=== PATIENT | male | born 1945 | race Caucasian/White ===

== ENCOUNTER 2018-06-20 16:03 | Emergency (ER) | payer MEDICARE, OTHER ==
--- NOTE | 2018-06-20 16:13 | ER Report ---
History and Physical Time Seen By MD: 16:14 Hx. of Stated Complaint: WORKING IN [employer] AND STARTED TO FEEL WHEEZY AND SOB. NO CP HPI/ROS CHIEF COMPLAINT: Shortness of breath HISTORY OF PRESENT ILLNESS: 72-year-old male patient presents to emergency room with complaint shortness of breath. 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 Patient states he felt like he is very wheezy. Patient states there are fair amount of rales droppings and states he noticed several mice, but it has put out poison for them. He denies having any fevers, chills, nausea, vomiting or diarrhea. Patient denies having any chest pain. He has not taken any medication for this. Upon arrival to the emergency room patient had auction saturation of 84% on room air. Patient was placed on 2 L auction states he feels better at this time. REVIEW OF SYSTEMS: Respiratory: As noted above. Cardiovascular: No chest pain, no palpitations. Gastrointestinal: No vomiting, no abdominal pain. Musculoskeletal: No back pain. Allergies: Uncoded Allergies: ANESTHESIA (Adverse Reaction, Mild, 06/20/18) UNABLE TO DETERMINE NAME OF MEDICATION. HAD VOMITING FOLLOWING SURGERY Home Meds No Active Prescriptions or Reported Meds Past Medical/Surgical History Patient denies any pertinent medical history. Patient has surgical history of orthopedic surgery. Reviewed Nurses Notes: Yes Constitutional Vital Sign - Last 24 Hours 06/20/18 06/20/18 06/20/18 06/20/18 16:09 16:09 16:30 16:39 Temp 97.9 Pulse 89 77 Resp 20 18 B/P (MAP) 169/101 142/89 (106) Pulse Ox 85 94 95 O2 Delivery Room Air Nasal Cannula O2 Flow Rate 2.0 2.0 06/20/18 06/20/18 06/20/18 06/20/18 16:39 17:04 17:30 17:48 Pulse 80 79 Resp 16 18 B/P (MAP) 152/94 (113) 142/87 (105) 142/86 (104) Pulse Ox 90 O2 Delivery Room Air Physical Exam General Appearance: The patient is alert, has no immediate need for airway protection and no current signs of toxicity. Respiratory: Chest is non tender, lungs are diminished in the left lower lobe to auscultation. Cardiac: regular rate and rhythm Gastrointestinal: Abdomen is soft and non tender, no masses, bowel sounds normal. Musculoskeletal: Neck: Neck is supple and non tender. Extremities have full range of motion and are non tender. Skin: No rashes or lesions. DIFFERENTIAL DIAGNOSIS: After history and physical exam differential diagnosis was considered for shortness of breath including but not limited to pulmonary infectious process, COPD, asthma, pulmonary embolus and congestive heart failure. Medical Decision Making Data Points Result Diagram: 06/20/18 1620 06/20/18 1620 Laboratory Hematology Test 06/20/18 16:20 Red Blood Count 5.12 M/uL (4.00-5.60) Mean Corpuscular Volume 84.6 fL (80.0-96.0) Mean Corpuscular Hemoglobin 29.1 pg (26.0-33.0) Mean Corpuscular Hemoglobin Concent 34.4 g/dL (32.0-36.0) Red Cell Distribution Width 14.3 % (11.5-14.5) Mean Platelet Volume 8.3 fL (7.2-11.1) Neutrophils (%) (Auto) 63.7 % (39.4-72.5) Lymphocytes (%) (Auto) 28.3 % (17.6-49.6) Monocytes (%) (Auto) 6.1 % (4.1-12.4) Eosinophils (%) (Auto) 1.3 % (0.4-6.7) Basophils (%) (Auto) 0.6 % (0.3-1.4) Nucleated RBC Relative Count (auto) 0.0 /100WBC Neutrophils # (Auto) 4.0 K/uL (2.0-7.4) Lymphocytes # (Auto) 1.8 K/uL (1.3-3.6) Monocytes # (Auto) 0.4 K/uL (0.3-1.0) Eosinophils # (Auto) 0.1 K/uL (0.0-0.5) Basophils # (Auto) 0.0 K/uL (0.0-0.1) Nucleated RBC Absolute Count (auto) 0.00 K/uL Sodium Level 143 mmol/L (137-145) Potassium Level 3.8 mmol/L (3.5-5.0) Chloride Level 105 mmol/L (98-107) Carbon Dioxide Level 26 mmol/L (22-30) Blood Urea Nitrogen 21 mg/dl (9-21) Creatinine 1.30 mg/dl (0.66-1.25) Glomerular Filtration Rate Calc 54.3 Random Glucose 119 mg/dl (75-110) Calcium Level 9.3 mg/dl (8.4-10.2) Total Bilirubin 0.7 mg/dl (0.2-1.3) Aspartate Amino Transf (AST/SGOT) 17 U/L (0-35) Alanine Aminotransferase (ALT/SGPT) 28 U/L (0-56) Alkaline Phosphatase 58 U/L (0-126) Troponin I < 0.012 ng/ml Total Protein 7.6 g/dl (6.3-8.2) Albumin 4.6 g/dl (3.5-5.0) Chemistry Test 06/20/18 16:20 White Blood Count 6.3 k/uL (4.5-11.0) Red Blood Count 5.12 M/uL (4.00-5.60) Hemoglobin 14.9 g/dL (14.0-18.0) Hematocrit 43.3 % (42.0-52.0) Mean Corpuscular Volume 84.6 fL (80.0-96.0) Mean Corpuscular Hemoglobin 29.1 pg (26.0-33.0) Mean Corpuscular Hemoglobin Concent 34.4 g/dL (32.0-36.0) Red Cell Distribution Width 14.3 % (11.5-14.5) Platelet Count 234 K/uL (150-450) Mean Platelet Volume 8.3 fL (7.2-11.1) Neutrophils (%) (Auto) 63.7 % (39.4-72.5) Lymphocytes (%) (Auto) 28.3 % (17.6-49.6) Monocytes (%) (Auto) 6.1 % (4.1-12.4) Eosinophils (%) (Auto) 1.3 % (0.4-6.7) Basophils (%) (Auto) 0.6 % (0.3-1.4) Nucleated RBC Relative Count (auto) 0.0 /100WBC Neutrophils # (Auto) 4.0 K/uL (2.0-7.4) Lymphocytes # (Auto) 1.8 K/uL (1.3-3.6) Monocytes # (Auto) 0.4 K/uL (0.3-1.0) Eosinophils # (Auto) 0.1 K/uL (0.0-0.5) Basophils # (Auto) 0.0 K/uL (0.0-0.1) Nucleated RBC Absolute Count (auto) 0.00 K/uL Glomerular Filtration Rate Calc 54.3 Calcium Level 9.3 mg/dl (8.4-10.2) Total Bilirubin 0.7 mg/dl (0.2-1.3) Aspartate Amino Transf (AST/SGOT) 17 U/L (0-35) Alanine Aminotransferase (ALT/SGPT) 28 U/L (0-56) Alkaline Phosphatase 58 U/L (0-126) Troponin I < 0.012 ng/ml Total Protein 7.6 g/dl (6.3-8.2) Albumin 4.6 g/dl (3.5-5.0) EKG/Imaging Imaging 2 VIEWS CHEST INDICATION: Respiratory distress. COMPARISON: None available FINDINGS: Cardiomediastinal silhouette and pulmonary vessels within normal limits. There is no focal infiltrate or lobar consolidation. There is no pneumothorax or pleural effusion. No nodule. Upper abdomen is unremarkable. There is mild compression the T11-T12 vertebral body. No other focal bony abnormality. IMPRESSION: 1. No acute cardiopulmonary process. 2. Mild compression of the T11-T12 vertebral bodies. Age of which is indeterminate. Report Dictated By: Raman Carrillo at 06/20/2018 5:12 PM Report E-Signed By: Raman Carrillo at 06/20/2018 5:14 PM ED Course/Re-evaluation ED Course Patient was admitted to an exam room, history and physical were obtained. Differential diagnoses were considered. On examination lungs are clear except for slightly diminished in the left lower lobe. A IV was started, CBC, CMP, troponin, EKG, chest x-ray, breathing treatment were done. Patient was a little bit hypoxic and was placed on 2 L oxygen. Lab results were unremarkable, chest x-ray showed no acute cardiopulmonary processes. Patient had an normal sinus rhythm with his EKG. Patient had significant improvement with breathing treatment. I discussed the results with the patient. I believe that he likely had a reaction to the dust that he was exposed to. We will go ahead and discharge patient home this time. We will give him a inhaler. I would like him follow-up with his primary care provider, in the next week. He is to follow-up sooner if he develops fevers. Discusses patient and his family and they verbalized understanding and agreement with plan. Decision to Disposition Date: Jun 20, 2018 Decision to Disposition Time: 17:29 Depart Departure Latest Vital Signs Vital Signs Date Time Temp Pulse Resp B/P (MAP) Pulse Ox O2 Delivery O2 Flow Rate FiO2 06/20/18 17:48 142/86 (104) 06/20/18 17:30 79 18 90 Room Air 06/20/18 16:39 2.0 06/20/18 16:09 97.9 Impression: Primary Impression: Reactive airway disease Condition: Improved Disposition: HOME OR SELF-CARE New Scripts No Active Prescriptions or Reported Meds Patient Instructions: Reactive Airways Disease (ED) Additional Instructions: Increase fluid intake. Wear a mask when you are working under the cabin. Continue with normal medications. Follow up with your primary care provider in the next week. Follow up sooner if you develop a fever. Return to the ER if condition worsens. Problem Qualifiers Primary Impression: Reactive airway disease Asthma severity: mild Asthma persistence: intermittent Asthma complication type: with acute exacerbation Qualified Codes: J45.21 - Mild intermittent asthma with (acute) exacerbation JOSE ANGEL HOLLINGSWORTH Jun 20, 2018 16:13
[2018-06-20] MEDS ORDERED: ALBUTEROL/IPRATROPIUM 3 ML NEB NEB ONE (16:20)
[2018-06-20 16:30] LABS: PLATELET COUNT, AUTOMATED 234 K/uL (150-450)
[2018-06-20] MEDS ORDERED: NS(*) 0.9% 1000 ML BAG 1,000 ML IV ONE (16:40)
--- NOTE | 2018-06-20 16:59 | EKG ---
FACILITY: [facility] PATIENT NAME: MAKAYLA BARTLETT : [id number] MR: [id number] V: [id number] EXAM DATE: ORDERING PHYSICIAN: JOSE ANGEL HOLLINGSWORTH TECHNOLOGIST: STACI Test Reason : Blood Pressure : / mmHG Vent. Rate : 084 BPM Atrial Rate : 084 BPM P-R Int : 162 ms QRS Dur : 090 ms QT Int : 382 ms P-R-T Axes : 041 042 034 degrees QTc Int : 451 ms Normal sinus rhythm Possible Left atrial enlargement Borderline ECG No previous ECGs available Confirmed by RENAN BOYKIN ([id number]) on 06/20/2018 8:32:04 PM Referred By: Confirmed By:RENAN BOYKIN
--- NOTE | 2018-06-20 17:17 | RADIOLOGY IMAGING REPORT ---
FACILITY: [facility] - [place] PATIENT NAME: Cachorro Perez : 1945 MR: [id number] V: [id number] EXAM DATE: ORDERING PHYSICIAN: JOSE ANGEL HOLLINGSWORTH TECHNOLOGIST: Location: [facility] [place] Patient: Cachorro Perez : 1945 Visit/Account:[id number] Date of Sevice: 06/20/2018 2 VIEWS CHEST INDICATION: Respiratory distress. COMPARISON: None available FINDINGS: Cardiomediastinal silhouette and pulmonary vessels within normal limits. There is no focal infiltrate or lobar consolidation. There is no pneumothorax or pleural effusion. No nodule. Upper abdomen is unremarkable. There is mild compression the T11-T12 vertebral body. No other focal b reyna abnormality. IMPRESSION: 1. No acute cardiopulmonary process. 2. Mild compression of the T11-T12 vertebral bodies. Age of which is indeterminate. Report Dictated By: Raman Carrillo at 06/20/2018 5:12 PM Report E-Signed By: Raman Carrillo at 06/20/2018 5:14 PM WSN:[id number]
[2018-06-20] MEDS ORDERED: ALBUTEROL 8 GM INHALER INH ONE (17:30)
[2018-06-20 17:48] VITALS: BP 142/86
== END 2018-06-20 17:53 | disposition home or self-care (01) ==
LOC: ER 16:09
DX: J45.21 Mild intermittent asthma with (acute) exacerbation (principal)
CPT/HCPCS: 71046; 84484; 85025; 93005; 94640; 99283; J3535; J7030; J7620; 82040; 82247; 82310; 82374; 82435; 82565; 82947; 84075; 84132; 84155; 84295; 84450; 84460; 84520